=== PATIENT | female | born 1990 | race Two or more races ===

== ENCOUNTER 2025-06-16 07:15 | Inpatient (IN) | payer MEDICAID, SELFPAY ==
[2025-06-12 12:35] VITALS: BMI 34.9
[2025-06-12 13:24] LABS: Basophils # (Auto) 0.1 Thou/mm3 (0.0-0.2); Basophils % (Auto) 1 % (0-2.5); Eosinophils # (Auto) 0.1 Thou/mm3 (0.0-0.5); Eosinophils % (Auto) 2 % (0-10); Hematocrit 42.4 % (36.0-46.0); Hemoglobin 13.9 g/dL (12.0-16.0); Immature Granulocytes Auto 0.01 Thou/mm3 (0.00-0.00); Lymphocytes # (Auto) 2.1 Thou/mm3 (1.0-4.8); Lymphocytes % (Auto) 35 % (10-50); Mean Corpuscular HGB Conc 32.8 g/dl (31.0-37.0); Mean Corpuscular Hemoglobin 30.5 pg (25.0-35.0); Mean Corpuscular Volume 93 fL (80-100); Monocytes # (Auto) 0.5 Thou/mm3 (0.0-0.8); Monocytes % (Auto) 8 % (0-12); Neutrophils # (Auto) 3.3 Thou/mm3 (1.8-7.7); Neutrophils % (Auto) 55 % (37-80); Nucleated Red Blood Cell # 0.00 Thou/mm3 (0.00-0.00); Nucleated Red Blood Cell % 0 /100 WBC (0); Platelet Count 262 Thou/mm3 (140-440); RDW Standard Deviation 43.8 fL (36.4-46.3); Red Blood Count 4.55 Miln/mm3 (4.00-5.20); White Blood Count 6.0 Thou/mm3 (3.6-11.0)
[2025-06-12 13:32] LABS: INR 1.0 (0.9-1.3); Partial Thromboplastin Time 27.9 Seconds (22.0-36.0); Prothrombin Time 10.9 Seconds (9.0-12.2)
[2025-06-12 13:44] LABS: Alanine Aminotransferase 24 U/L (10-49); Albumin, Serum 4.7 gm/dL (3.5-5.0); Albumin/Globulin Ratio 2.0 (1.2-2.2); Alkaline Phosphatase 80 U/L (46-116); Anion Gap 13 (7-16); Aspartate Amino Transferase 36 U/L (0-34); BUN/Creatinine Ratio 12 Ratio (12-20); Beta HCG,Quantitative < 1 mIU/mL (<5.0); Bilirubin,Total 1.2 mg/dL (0.3-1.2); Blood Urea Nitrogen 7 mg/dL (9-23); Calcium 9.7 mg/dL (8.3-10.6); Calcium (Corrected) 9.7 mg/dL (8.5-10.1); Carbon Dioxide 27.5 mMol/L (20.0-31.0); Chloride 103 mMol/L (98-107); Creatinine (Component) 0.6 mg/dL (0.6-1.3); Estimated Creatinine Clearance 122.3 mL/min (>60); Globulin 2.3 gm/dL (2.3-3.5); Glucose 88 mg/dL (74-106); Osmolality,Calculated 281 (275-295); Potassium 3.5 mMol/L (3.4-5.1); Sodium 143 mMol/L (136-145); Total Protein 7.0 gm/dL (5.7-8.2); eGFR > 60 See Note
--- NOTE | 2025-06-15 11:07 | ESHP_ITS ---
RE: SAIMA PEREYRA : 1990 DATE OF ADMISSION: 06/16/2025 HISTORY OF PRESENT ILLNESS: This is a 34-year-old 4, para 3-0-1-3 who has abnormal uterine bleeding and dysmenorrhea who underwent a prior endometrial ablation which failed to control these problems. She is presenting now for hysterectomy. She has a history of sterilization. She declines future fertility. MEDICATIONS: None. SOCIAL HISTORY: She is . She denies any alcohol, drug use, or smoking. PAST MEDICAL HISTORY: Migraine headaches, iron deficiency anemia, latent tuberculosis infection treated in 2012. FAMILY HISTORY: Breast cancer, diabetes, hypertension, colon cancer, and kidney cancer. OBSTETRIC HISTORY: Two previous full-term normal vaginal deliveries and 1 previous full-term delivery, and 1 prior spontaneous . PAST SURGICAL HISTORY: delivery in 2015, endometrial ablation in 01/2024, and laparoscopic bilateral salpingectomy in 2023. REVIEW OF SYSTEMS: She denies any chest pain, palpitations, cough, fever, shortness of breath, or lower extremity pain. PHYSICAL EXAMINATION: VITAL SIGNS: Blood pressure is 122/80, heart rate 88, respirations 18, temperature 98.6, weight 180 pounds. HEENT: Oropharynx and sclerae are clear. LUNGS: Clear to auscultation bilaterally. HEART: Regular rate and rhythm. ABDOMEN: Old Pfannenstiel scar noted. EXTREMITIES: Nontender. SKIN: No gross rashes or lesions. NEUROLOGIC: No focal deficits. ASSESSMENT AND PLAN: Abdominal hysterectomy, and possible bilateral oophorectomy. Informed consent was obtained. The patient was made aware of the risks, complications, alternatives, and benefits of the proposed procedure and she agrees. She is aware of the risk of injury to bowel, bladder, ureters, nerve injury to the legs and skin, pulmonary embolism, deep vein thrombosis, injury to the vessels of the abdominal wall, hematoma, abscess, wound infection, wound dehiscence, pelvic infection, reoperation to repair injury to internal organs, anesthesia complications, the need for future surgery to remove ovaries, and the need to take hormone therapy and its associated risks as well as uncontrollable loss of urine problems, future prolapse of the vagina, and rarely . DT: 10:42:14 TT: 11:07:00 Ref: [id number] - TID: [id number]
[2025-06-16] VITALS (13 sets, daily range): BP systolic 111–148; BP diastolic 71–90; PULSE 61–79; RESP 12–22; TEMP 36.2–37.2; O2SAT 96–99; BMI 34.7; BMI 36.8
--- NOTE | 2025-06-16 08:00 | CHAP ---
Visited briefly with patient giving comfort and prayer for the upcoming procedure.
--- NOTE | 2025-06-16 10:23 | SUR.PHASEI ---
pt received from OR in recovery bay 1. pt asleep but responds to voice, breathing unlabored on 4l nc. v/s stable. pt dressing to abd and peripad cdi. mitchell cath in place. report received from Jose Bynum and Dr. Johnson.
[2025-06-16] MEDS: HYDROmorphone 1 MG/ML PCA SYRINGE 30ML 30 MG IV (10:54)
--- NOTE | 2025-06-16 10:59 | ESOP_ITS ---
Operative Note - MEDICAL OFFICE CLERK Procedure Date of procedure: 06/16/25 Procedure Performed: Subtotal Abdominal Hysterectomy Indication: Abnormal uterine bleeding Chronic Pelvic Pain Dysmenorhea Pre-Op diagnosis: Abnormal uterine bleeding Chronic Pelvic Pain Dysmenorhea Post-Op diagnosis: Abnormal uterine bleeding Chronic Pelvic Pain Dysmenorhea Pelvic Adhesions Anesthesia type: General Procedure description: The risks, benefits, indications, and alternatives of the procedure were reviewed with the patient and informed consent was obtained.? She was taken to the operating room with IV running.? She received antibiotics prior to the procedure.? LEYLA hose and Flowtrons were in place.? She was placed in the supine position on the operating room table.? She underwent induction of general anesthesia.? A Julian catheter was placed.? She was prepped and draped in the usual sterile fashion.? A timeout was performed.? A Pfannenstiel skin incision was made with a scalpel, carried through the underlying layer of fascia with the Bovie.? The fascia was nicked in the midline and the incision extended bilaterally with the Bovie.? The inferior aspect of fascial incision was grasped with Smooth clamps, elevated, and the underlying rectus muscle dissected off with the Bovie.? The rectus muscles were in the midline.? The peritoneum was identified between 2 Milla clamps and entered sharply with the Metzenbaum scissors.? The incision was extended superiorly and inferiorly with good visualization.? The patient was placed in slight Trendelenburg The round ligaments on both sides were clamped with the EnSeal X1 large jaw, fulgurated,? transected, and hemostasis was achieved.? The utero-ovarian ligaments on both sides were then clamped with the EnSeal, fulgurated and transected, and hemostasis was achieved.? The anterior leaf of the broad ligament was incised along the bladder reflection at the midline from both sides.? The bladder was gently dissected off the lower uterine segment with Metzenbaum scissors and pickups with teeth.? This was made difficult due to the bladder adhesions.? The broad ligaments on both sides were then clamped with the EnSeal X1 large jaw, fulgurated, and transected.? Hemostasis was achieved. The uterine arteries then were bilaterally clamped with the EnSeal X1 large jaw, fulgurated, and transected.? Hemostasis was achieved. The uterus was amputated at the level of the cervix uterine junction. The cervical stump was suture ligated with a series of figure of eight O vicryl sutures. The fallopian tubes were not seen. The pelvis was irrigated with warm normal saline solution.? The pelvis was observed meticulously for several minutes and no bleeding was noted. The muscle closed with 0 chromic catgut suture in running fashion.? The fascia was closed with 0 Vicryl beginning at each angle and ending center in a running fashion.? Subcutaneous tissue was irrigated with normal saline solution and closed with 2-0 chromic catgut suture in running fashion.? The skin was closed with 4-0 Monocryl.? Dermabond Prineo dressing was applied, and then a sterile pressure dressing was applied.? She tolerated the procedure well.? Counts were correct.? I discussed with the patient preoperatively the postoperative plan.? All questions were answered. Specimen: uterus Estimated blood loss (ml): 50 Findings: Normal size uterus Adhesions of bladder to lower uterine segment Normal size ovaries with functional cysts on both ovaries No fallopian tubes seen. Complications: none Surgical staff Operation Date: 06/16/25 09:00 Case Staff Anesthesiologist: Ben Johnson RNaccounts specialist: Lina Mendoza Diagnosis Problem List Completed Was Problem List Reviewed/Reconciled?: Yes
[2025-06-16] MEDS: RINGERS LACTATED 1000 ML 1,000 ML 30 ML IV (11:00)
--- NOTE | 2025-06-16 11:20 | SUR.PHASEI ---
pt asleep but responds to voice, breathing unlabored on nc 2l. v/s stable. pt dressing to abd and peripad cdi. pt mitchell catheter in place. report called to Love DONALDSON. pt will be transferred to room at this time.
[2025-06-16] MEDS: ONDANSETRON INJ 2 MG/ML INJ 2 ML 4 MG IVP (18:11)
[2025-06-16 18:23] LABS: Basophils # (Auto) 0.0 Thou/mm3 (0.0-0.2); Basophils % (Auto) 0 % (0-2.5); Eosinophils # (Auto) 0.0 Thou/mm3 (0.0-0.5); Eosinophils % (Auto) 0 % (0-10); Hematocrit 41.3 % (36.0-46.0); Hemoglobin 13.9 g/dL (12.0-16.0); Immature Granulocytes Auto 0.09 Thou/mm3 (0.00-0.00); Lymphocytes # (Auto) 0.7 Thou/mm3 (1.0-4.8); Lymphocytes % (Auto) 4 % (10-50); Mean Corpuscular HGB Conc 33.7 g/dl (31.0-37.0); Mean Corpuscular Hemoglobin 31.0 pg (25.0-35.0); Mean Corpuscular Volume 92 fL (80-100); Monocytes # (Auto) 0.2 Thou/mm3 (0.0-0.8); Monocytes % (Auto) 1 % (0-12); Neutrophils # (Auto) 15.5 Thou/mm3 (1.8-7.7); Neutrophils % (Auto) 94 % (37-80); Nucleated Red Blood Cell # 0.00 Thou/mm3 (0.00-0.00); Nucleated Red Blood Cell % 0 /100 WBC (0); Platelet Count 245 Thou/mm3 (140-440); RDW Standard Deviation 43.3 fL (36.4-46.3); Red Blood Count 4.48 Miln/mm3 (4.00-5.20); White Blood Count 16.5 Thou/mm3 (3.6-11.0)
[2025-06-17] VITALS (9 sets, daily range): BP systolic 115–145; BP diastolic 71–87; PULSE 66–82; RESP 16–98; TEMP 36.2–36.6; O2SAT 96–99
--- NOTE | 2025-06-17 06:11 | PC.NURSE ---
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
[2025-06-17] MEDS: DOCUSATE SOD 100 MG CAPSULE PO (08:09)
[2025-06-17] MEDS: HYDROcodone/APAP 5/325 TABLET 2 TAB PO ×3 (08:10→21:35)
--- NOTE | 2025-06-17 08:41 | ESPR_ITS ---
RE: SAIMA PEREYRA : 1990 DATE OF SERVICE: 06/17/2025 SUBJECTIVE: Postop day #1. The patient denies any problem or complaint. She has got adequate urine output with Julian catheter in place. She has got adequate pain relief. She has had some itching and nausea from the Dilaudid DIGITAL PRODUCER. She denies any vaginal bleeding. She denies any dizziness or lightheadedness. She denies any chest pain, palpitations, shortness of breath, or lower extremity pain or swelling. She denies any vomiting. OBJECTIVE: VITAL SIGNS: Blood pressure 121/66. Heart rate 16. Temperature is 97.1. Pulse ox is 98% with 2 L nasal cannula. LUNGS: Clear to auscultation bilaterally. HEART: Regular rate and rhythm. ABDOMEN: Nondistended. Dressing dry and intact. EXTREMITIES: Nontender. LABORATORY DATA: Hemoglobin pre-surgery is 13.9, post surgery is 13.9. ASSESSMENT: Postoperative day #1 status post subtotal abdominal hysterectomy. PLAN: Remove dressing. Discontinue IV, discontinue DIGITAL PRODUCER, transition to hydrocodone with Toradol for breakthrough pain. Regular diet. Encourage ambulation, and possible discharge home tomorrow. DT: 08:31:08 TT: 08:40:00 Ref: [id number] - TID: [id number]
--- NOTE | 2025-06-17 09:24 | PC.SS ---
Patient Renetta Moran is a 34 Year old female admitted for IOANA POSS BSO. SS met with patient at bedside to discuss discharge plan and verify demographic information. Patient reports she lives at home with her Byron Moran who she reports is her surrogate decision maker, [phone]. Choice of pharmacy is [facility]. PCP is Kilo Camara. Patient is able to complete all ADL's independently and does not utilize any source of DME. At time of discharge patient will return back home, will provide transportation. Next of kin: Byron Moran Discharge plan: Home
--- NOTE | 2025-06-17 11:15 | PC.NURSE ---
Pt urinated at 0845 and 1000. pt complains of pain
--- NOTE | 2025-06-17 16:20 | PC.SS ---
SS follow up note; POST OP day #1. Patient will possibly discharge home tomorrow.
[2025-06-18] VITALS: BP 105/69; PULSE 89; RESP 18; TEMP 37; O2SAT 96
[2025-06-18 04:00] VITALS: BP 141/88; PULSE 74; RESP 18; TEMP 36.9; O2SAT 92
[2025-06-18] MEDS: KETOROLAC INJ 30 MG/ML VIAL IVP (04:49)
--- NOTE | 2025-06-18 04:59 | PC.NURSE ---
[facility] downtime occured on 06/18/25 from [id number]
[2025-06-18 06:31] VITALS: PULSE 78; RESP 18; RESP 98
--- NOTE | 2025-06-18 07:04 | PD.GYNDS ---
Planned Discharge Date 06/18/25 DS: Providers Provider Date of admission: 06/16/25 07:15 Primary care physician: Kilo Camara MD Admitting Provider: Pepe Epps MD Attending Provider on Admission: Pepe Epps MD Consults: 06/16/25 13:28 [facility] Referral - Safety Routine Comment: Positive screening for safety needs. Attending Provider on DC: Pepe Epps MD Discharging Provider: Pepe Epps MD DS: Diagnosis Problem List Completed Was Problem List Reviewed/Reconciled?: Yes Hospital Course Time Spent with Patient Time attestation: Total time spent providing and/or coordinating discharge services: Time spent: Less than 30 minutes Quality: VTE Deep Vein Thrombosis/Pulmonary Embolism Present on Admission: No Exam - CRITICAL CARE REGISTERED NURSE Vital Signs Temp Pulse Resp BP Pulse Ox O2 Del Method O2 Flow Rate 98.4 F 78 18 141/88 H 92 L Room Air 1 06/18/25 04:00 06/18/25 06:31 06/18/25 06:31 06/18/25 04:00 06/18/25 04:00 06/18/25 04:00 06/16/25 19:24 Discharge Plan Plan Patient Disposition: HOME (Self Care) Patient condition on transfer: Stable Prescriptions/Referrals Prescriptions/Med Rec: New ibuprofen 800 mg tablet 800 mg PO Q6H PRN (Reason: pain) Qty: 30 0RF Referrals: Kilo Camara MD [Primary Care Provider, Family Practice] Patient/Caregiver Discharge Instructions Discharge Activity: activity as tolerated Other Discharge Activity Instructions:: Follow up office 1 week. She already has a Rx for [place] at home Print Language: Malay Stand Alone Forms: Susanna Award Info., Patient Portal Info Letter Discharge Order Discharge Orders: Discharge (Routine); Ordered 06/18/25 Ordered By: Pepe Epps
--- NOTE | 2025-06-18 07:13 | ESPR_ITS ---
RE: SAIMA PEREYRA : 1990 DATE OF SERVICE: 06/18/2025 S: Postop day #2, the patient denies any problem or complaints. She is voiding. She is ambulating. She tolerated regular diet. She is passing flatus. She denies any excessive vaginal bleeding. She denies any dizziness or lightheadedness. She denies any chest pain, palpitations, shortness of breath, or lower extremity pain. O: Vital Signs: Blood pressure 141/88, heart rate 74, respirations 18, temperature is 98.4. Lungs: Clear to auscultation bilaterally. Heart: Regular rate and rhythm. Abdomen: Incision clear and intact, nondistended. Extremities: Nontender. A: Postop day, 2 status post subtotal abdominal hysterectomy. P: Discharge home. Discharge instructions given. Follow up in the office in 1 week. DT: 07:04:40 TT: 07:12:00 Ref: [id number] - TID: [id number]
[2025-06-18 08:00] VITALS: BP 123/79; PULSE 84; RESP 18; TEMP 36.6; O2SAT 97
--- NOTE | 2025-06-18 10:02 | PC.NURSE ---
pt ready to dc waiting on ride.
== END 2025-06-18 11:12 | disposition home or self-care (01) | DRG 513 ==
LOC: S2W1 07:15 → S3NX 11:24
PROVIDERS: Admitting Provider Specialist; PCP Family Medicine; Visit Provider Specialist
PROC: 0UT90ZZ Resection of Uterus, Open Approach (ICD-10-PCS; principal; 2025-06-16 08:45)
DX: N93.9 Abnormal uterine and vaginal bleeding, unspecified (principal); N73.6 Female pelvic peritoneal adhesions (postinfective); G89.29 Other chronic pain
CPT/HCPCS: 36415; 80053; 84702; 85025; 85610; 85730; 86850; 86900; 86901; 94664; A4217; A4314; A4649; J0131; J0690; J1100; J1171; J1885; J2405; J2704; J2710; J3010; J3490; J7120; A9270; J1596